=== PATIENT | female | born 1980 | race African-American/Black ===

== ENCOUNTER 2018-05-29 11:45 | Emergency (ER) | payer OTHER ==
[~2018-05-29] VITALS: Ht 175.3 cm; Wt 81.7 kg
[~2018-05-29 11:45] MED LIST: APAP500 PO; DIABETIC T200 MG/5 M PO; IBUPROFEN 600600 M1 PO; LANOLIN56 GM; NORCO 5-325 TA1 EACH; NORCO 5-325 TA1 EACH PO; PRENATAL; TRIPLE NIPPLE
[2018-05-29] MEDS ORDERED: NORFLEX100 MG PO (12:53)
[2018-05-29] MEDS ORDERED: IBUPROFEN 800800 M1 PO (12:53)
== END 2018-05-29 13:30 | disposition home or self-care (01) ==
LOC: ER 11:45
DX: S16.1XXA Strain of muscle, fascia and tendon at neck level, initial encounter (principal); V89.2XXA Person injured in unspecified motor-vehicle accident, traffic, initial encounter; Y93.89 Activity, other specified; Y92.89 Other specified places as the place of occurrence of the external cause; Y99.8 Other external cause status